=== PATIENT | female | born 1950 | race Caucasian/White ===

== ENCOUNTER 2022-11-01 12:01 | Inpatient (IN) | payer BC, OTHER ==
[2022-10-31 20:00] VITALS: BP_SYST 125
[~2022-11-01] VITALS: Ht 167.6 cm; Wt 81.6 kg
[2022-11-01 12:35] VITALS: BP_SYST 136
[2022-11-01] MEDS ORDERED: NACL 0.9% 1,000 ML IV ONE (13:00)
[2022-11-01 13:43] LABS: BASOPHILS % (AUTO) 0.3 % (0.0-2.0); EOSINOPHILS % (AUTO) 0.1 % (0.0-4.0); HEMATOCRIT 41.3 % (36-48); HEMOGLOBIN 13.9 g/dL (12.0-16.0); LYMPHOCYTES # (AUTO) 1.3 K/uL (1.0-5.5); LYMPHOCYTES % (AUTO) 8.6 % (20.5-51.5); MEAN CORPUSCULAR HEMOGLOBIN 33 pg (27-31); MEAN CORPUSCULAR HGB CONC 34 % (32-36); MEAN CORPUSCULAR VOLUME 97 fL (79.0-98.0); MONOCYTES # (AUTO) 1.8 K/uL (0.0-1.0); MONOCYTES % (AUTO) 11.8 % (1.7-9.3); NEUTROPHILS % (AUTO) 79.2 % (40.0-70.0); PLATELET COUNT (AUTO) 577 K/uL (130-430); RED BLOOD CELL COUNT(AUTO) 4.24 MIL/uL (4.2-6.2); RED CELL DISTRIBUTION WIDTH 13.2 % (9.0-15.0); WHITE BLOOD COUNT (AUTO) 15.1 K/uL (4.8-10.8)
[2022-11-01 13:43] LABS: BILIRUBIN,URINE NEGATIVE (NEGATIVE); BLOOD, URINE 3+ (NEGATIVE); CLARITY/URINE SL CLOUDY (CLEAR); COLOR,URINE YELLOW (YELLOW); GLUCOSE,URINE NEGATIVE (NEGATIVE); KETONES,URINE TRACE (NEGATIVE); LEUKOCYTE ESTERASE ,URINE 3+ (NEGATIVE); NITRITE, URINE POSITIVE (NEGATIVE); PROTEIN URINE TRACE (NEGATIVE); UROBILINOGEN,URINE 0.2 (0.2-1.0)
[2022-11-01 13:54] LABS: WBC,URINE >100 /HPF (0-3)
[2022-11-01 13:55] LABS: BACTERIA,URINE MANY /HPF (None Seen); MUCUS,URINE 1+ /LPF (None Seen)
[2022-11-01 13:57] LABS: ANION GAP 10 (5-15); CALCIUM 9.4 mg/dL (8.4-11.0); CHLORIDE 94 mmol/L (98-107); CREATININE 1.52 mg/dL (0.55-1.30); GLUCOSE 110 mg/dL (70-99); UREA NITROGEN, BLOOD 26 mg/dL (8-21)
[2022-11-01 14:04] LABS: ALANINE AMINOTRANSFERASE 21 U/L (12-78); ALBUMIN 2.3 g/dL (3.4-4.8); ASPARTATE AMINOTRANSFERASE 24 U/L (10-37); TOTAL BILIRUBIN 0.7 mg/dL (0.0-1.0)
[2022-11-01] MEDS ORDERED: cefTRIAXone 1 GM IVPB PREMIX 50 ML IV ONE (14:15)
[2022-11-01] MEDS: NACL 0.9% 1,000 ML IV SCH (15:39)
[2022-11-01] MEDS: ACETAMINOPHEN 325 MG TABLET PO PRN ×2 (16:06→23:44)
[2022-11-01] MEDS ORDERED: ACET325T53 PO (16:29)
[2022-11-01 20:00] VITALS: BP_SYST 125
[2022-11-01] MEDS: MORPHINE 2 MG/ML INJ. SYRINGE IVP PRN (21:41)
[2022-11-01] MEDS: ONDANSETRON HCL 4 MG/2 ML VIAL IM PRN (21:41)
[2022-11-02 00:19] VITALS: BP_SYST 133
[2022-11-02] MEDS: ONDANSETRON HCL 4 MG/2 ML VIAL IM PRN (04:31)
[2022-11-02] MEDS: MORPHINE 2 MG/ML INJ. SYRINGE IVP PRN ×4 (04:31→23:37)
[2022-11-02 07:00] LABS: BASOPHILS % (AUTO) 0.2 % (0.0-2.0); EOSINOPHILS % (AUTO) 0.1 % (0.0-4.0); HEMATOCRIT 40.4 % (36-48); HEMOGLOBIN 14.1 g/dL (12.0-16.0); LYMPHOCYTES # (AUTO) 1.1 K/uL (1.0-5.5); LYMPHOCYTES % (AUTO) 6.8 % (20.5-51.5); MEAN CORPUSCULAR HEMOGLOBIN 34 pg (27-31); MEAN CORPUSCULAR HGB CONC 35 % (32-36); MEAN CORPUSCULAR VOLUME 97 fL (79.0-98.0); MONOCYTES # (AUTO) 1.8 K/uL (0.0-1.0); MONOCYTES % (AUTO) 11.5 % (1.7-9.3); NEUTROPHILS # (AUTO) 12.6 K/uL (1.8-7.7); NEUTROPHILS % (AUTO) 81.4 % (40.0-70.0); PLATELET COUNT (AUTO) 569 K/uL (130-430); RED BLOOD CELL COUNT(AUTO) 4.16 MIL/uL (4.2-6.2); RED CELL DISTRIBUTION WIDTH 13.1 % (9.0-15.0); WHITE BLOOD COUNT (AUTO) 15.5 K/uL (4.8-10.8)
[2022-11-02 07:47] LABS: CALCIUM 8.8 mg/dL (8.4-11.0); CHLORIDE 96 mmol/L (98-107); CREATININE 1.37 mg/dL (0.55-1.30); GLUCOSE 115 mg/dL (70-99); UREA NITROGEN, BLOOD 23 mg/dL (8-21)
[2022-11-02] MEDS: ACETAMINOPHEN 325 MG TABLET PO PRN ×2 (07:47→13:50)
[2022-11-02 08:00] VITALS: BP_SYST 127
[2022-11-02 08:44] LABS: ANION GAP 14 (5-15)
[2022-11-02] MEDS ORDERED: POTASSIUM CHLORIDE 20 MEQ TAB.PRT.SR PO ONE (09:30)
[2022-11-02 10:14] LABS: URINE SODIUM, RANDOM 8 mmol/L (40-220)
[2022-11-02 12:56] VITALS: BP_SYST 129
[2022-11-02] MEDS: cefTRIAXone 1 GM in D5W 50 ML IV SCH (13:51)
[2022-11-02 16:52] VITALS: BP_SYST 128
[2022-11-02] MEDS: NACL 0.9% 1,000 ML IV SCH (18:42)
[2022-11-03 00:40] VITALS: BP_SYST 112
[2022-11-03] MEDS: NACL 0.9% 1,000 ML IV SCH ×2 (00:53→18:18)
[2022-11-03 01:10] VITALS: BP_SYST 123
[2022-11-03 08:00] VITALS: BP_SYST 122
[2022-11-03] MEDS: MORPHINE 2 MG/ML INJ. SYRINGE IVP PRN ×3 (10:51→21:43)
[2022-11-03 12:20] LABS: BASOPHILS # (AUTO) 0.1 K/uL (0.0-0.2); BASOPHILS % (AUTO) 0.4 % (0.0-2.0); EOSINOPHILS % (AUTO) 0.2 % (0.0-4.0); HEMATOCRIT 39.7 % (36-48); HEMOGLOBIN 13.1 g/dL (12.0-16.0); LYMPHOCYTES % (AUTO) 7.2 % (20.5-51.5); MEAN CORPUSCULAR HEMOGLOBIN 33 pg (27-31); MEAN CORPUSCULAR HGB CONC 33 % (32-36); MEAN CORPUSCULAR VOLUME 98 fL (79.0-98.0); MONOCYTES # (AUTO) 1.8 K/uL (0.0-1.0); MONOCYTES % (AUTO) 12.6 % (1.7-9.3); NEUTROPHILS # (AUTO) 11.1 K/uL (1.8-7.7); NEUTROPHILS % (AUTO) 79.6 % (40.0-70.0); PLATELET COUNT (AUTO) 540 K/uL (130-430); RED BLOOD CELL COUNT(AUTO) 4.04 MIL/uL (4.2-6.2); RED CELL DISTRIBUTION WIDTH 13.3 % (9.0-15.0)
[2022-11-03 12:23] VITALS: BP_SYST 107
[2022-11-03 12:28] LABS: ANION GAP 11 (5-15); CALCIUM 8.5 mg/dL (8.4-11.0); CHLORIDE 99 mmol/L (98-107); CREATININE 1.33 mg/dL (0.55-1.30); GLUCOSE 121 mg/dL (70-99); UREA NITROGEN, BLOOD 20 mg/dL (8-21)
[2022-11-03] MEDS: cefTRIAXone 1 GM in D5W 50 ML IV SCH (14:47)
[2022-11-03] MEDS ORDERED: POTASSIUM CHLORIDE 20 MEQ/PKT PACKET PO ONE (15:00)
[2022-11-03 16:45] VITALS: BP_SYST 107
[2022-11-03 20:00] VITALS: BP_SYST 115
[2022-11-04 01:03] VITALS: BP_SYST 126
[2022-11-04] MEDS: ONDANSETRON HCL 4 MG/2 ML VIAL IM PRN (04:29)
[2022-11-04] MEDS: MORPHINE 2 MG/ML INJ. SYRINGE IVP PRN ×2 (04:29→18:02)
[2022-11-04 06:21] LABS: BASOPHILS % (AUTO) 0.3 % (0.0-2.0); EOSINOPHILS % (AUTO) 0.2 % (0.0-4.0); HEMOGLOBIN 12.4 g/dL (12.0-16.0); LYMPHOCYTES % (AUTO) 8.7 % (20.5-51.5); MEAN CORPUSCULAR HEMOGLOBIN 33 pg (27-31); MEAN CORPUSCULAR HGB CONC 34 % (32-36); MEAN CORPUSCULAR VOLUME 97 fL (79.0-98.0); MONOCYTES # (AUTO) 1.5 K/uL (0.0-1.0); MONOCYTES % (AUTO) 12.8 % (1.7-9.3); PLATELET COUNT (AUTO) 515 K/uL (130-430); RED CELL DISTRIBUTION WIDTH 13.2 % (9.0-15.0); WHITE BLOOD COUNT (AUTO) 11.6 K/uL (4.8-10.8)
[2022-11-04 06:44] LABS: ANION GAP 8 (5-15); CALCIUM 8.5 mg/dL (8.4-11.0); CHLORIDE 102 mmol/L (98-107); CREATININE 1.22 mg/dL (0.55-1.30); GLUCOSE 118 mg/dL (70-99); UREA NITROGEN, BLOOD 17 mg/dL (8-21)
[2022-11-04 07:41] VITALS: BP_SYST 115
[2022-11-04] MEDS: NACL 0.9% 1,000 ML IV SCH (09:01)
[2022-11-04] MEDS: ACETAMINOPHEN 325 MG TABLET PO PRN ×3 (09:12→23:20)
[2022-11-04 11:16] VITALS: BP_SYST 90
[2022-11-04] MEDS: cefTRIAXone 1 GM in D5W 50 ML IV SCH (14:51)
[2022-11-04 15:29] VITALS: BP_SYST 105
[2022-11-04 20:00] VITALS: BP_SYST 116
[2022-11-05] VITALS: BP_SYST 116
[2022-11-05] MEDS: NACL 0.9% 1,000 ML IV SCH ×2 (04:34→18:40)
[2022-11-05] MEDS: ACETAMINOPHEN 325 MG TABLET PO PRN ×2 (05:55→18:15)
[2022-11-05 08:00] VITALS: BP_SYST 123
[2022-11-05 11:22] VITALS: BP_SYST 105
[2022-11-05] MEDS: MORPHINE 2 MG/ML INJ. SYRINGE IVP PRN (14:04)
[2022-11-05] MEDS: ONDANSETRON HCL 4 MG/2 ML VIAL IM PRN (14:04)
[2022-11-05] MEDS: cefTRIAXone 1 GM in D5W 50 ML IV SCH (15:21)
[2022-11-05 15:31] VITALS: BP_SYST 125
[2022-11-05 20:00] VITALS: BP_SYST 107
[2022-11-06 01:05] VITALS: BP_SYST 117
[2022-11-06] MEDS: MORPHINE 2 MG/ML INJ. SYRINGE IVP PRN (01:38)
[2022-11-06 07:02] LABS: BASOPHILS # (AUTO) 0.1 K/uL (0.0-0.2); BASOPHILS % (AUTO) 0.8 % (0.0-2.0); EOSINOPHILS # (AUTO) 0.1 K/uL (0.0-0.4); EOSINOPHILS % (AUTO) 0.5 % (0.0-4.0); HEMATOCRIT 34.8 % (36-48); HEMOGLOBIN 11.9 g/dL (12.0-16.0); LYMPHOCYTES # (AUTO) 1.2 K/uL (1.0-5.5); LYMPHOCYTES % (AUTO) 11.5 % (20.5-51.5); MEAN CORPUSCULAR HEMOGLOBIN 34 pg (27-31); MEAN CORPUSCULAR HGB CONC 34 % (32-36); MEAN CORPUSCULAR VOLUME 98 fL (79.0-98.0); MONOCYTES # (AUTO) 1.3 K/uL (0.0-1.0); MONOCYTES % (AUTO) 12.5 % (1.7-9.3); NEUTROPHILS # (AUTO) 7.5 K/uL (1.8-7.7); NEUTROPHILS % (AUTO) 74.7 % (40.0-70.0); PLATELET COUNT (AUTO) 521 K/uL (130-430); RED BLOOD CELL COUNT(AUTO) 3.54 MIL/uL (4.2-6.2); RED CELL DISTRIBUTION WIDTH 13.2 % (9.0-15.0)
[2022-11-06 07:21] LABS: ANION GAP 8 (5-15); C-REACTIVE PROTEIN QUANT 8.8 mg/dL (0-0.5); CALCIUM 8.6 mg/dL (8.4-11.0); CHLORIDE 105 mmol/L (98-107); CREATININE 1.18 mg/dL (0.55-1.30); GLUCOSE 103 mg/dL (70-99); PHOSPHORUS 3.6 mg/dL (2.7-4.5); UREA NITROGEN, BLOOD 10 mg/dL (8-21)
[2022-11-06 08:00] VITALS: BP_SYST 138
[2022-11-06] MEDS ORDERED: CIPR500T5 PO (11:44)
[2022-11-06 12:00] VITALS: BP_SYST 109
[2022-11-06] MEDS: ACETAMINOPHEN 325 MG TABLET PO PRN (12:52)
[2022-11-06] MEDS: NACL 0.9% 1,000 ML IV SCH (12:53)
[2022-11-06] MEDS: cefTRIAXone 1 GM in D5W 50 ML IV SCH (15:11)
[2022-11-06 16:00] VITALS: BP_SYST 122
[2022-11-06 17:48] VITALS: BP_SYST 122
== END 2022-11-06 18:20 | disposition home health service (06) | DRG 871 ==
LOC: SED 12:01 → SMU 14:54
PROVIDERS: ADMIT Family Medicine; ATTEND Family Medicine
DX: A41.9 Sepsis, unspecified organism (principal); N17.0 Acute kidney failure with tubular necrosis; E46 Unspecified protein-calorie malnutrition; N39.0 Urinary tract infection, site not specified; E87.1 Hypo-osmolality and hyponatremia; D75.839 Thrombocytosis, unspecified; D72.829 Elevated white blood cell count, unspecified; E87.6 Hypokalemia; R73.9 Hyperglycemia, unspecified; E86.1 Hypovolemia; I10 Essential (primary) hypertension; Z20.822 Contact with and (suspected) exposure to COVID-19; D64.9 Anemia, unspecified; B96.20 Unspecified Escherichia coli [E. coli] as the cause of diseases classified elsewhere; Z98.891 History of uterine scar from previous surgery
CPT/HCPCS: 36415; 71045; 76770; 80048; 80053; 81000; 82570; 83605; 83735; 83880; 84100; 84302; 84484; 85025; 85651-TC; 86140; 87040; 87086; 93005; 96361; 96365; 97110-GP; 97112-GP; 97116-GP; 97530-GP; 99285; J0696; J2270; J2405; J7060